=== PATIENT | female | born 1960 | race Caucasian/White ===

== ENCOUNTER → 2024-07-16 | Outpatient (CLI) | payer BC | LOC: MAMMO 15:30 | DX: Z12.31 Encounter for screening mammogram for malignant neoplasm of breast (principal); Z91.89 Other specified personal risk factors, not elsewhere classified ==

== ENCOUNTER → 2024-09-11 | Outpatient (CLI) | payer BC | LOC: RAD 07:53 | DX: M47.26 Other spondylosis with radiculopathy, lumbar region (principal); E27.9 Disorder of adrenal gland, unspecified ==